=== PATIENT | female | born 1955 | race Caucasian/White ===

== ENCOUNTER 2017-12-16 12:28 | Emergency (ER) | payer OTHER, SELFPAY ==
[2017-12-16] VITALS (9 sets, daily range): BP systolic 88–154; BP diastolic 60–99; PULSE 16–82; RESP 16–30; TEMP 36.6; O2SAT 91–98; BMI 27.2
--- NOTE | 2017-12-16 13:50 | EKG12_ITS ---
Test Reason : Blood Pressure : / mmHG Vent. Rate : 081 BPM Atrial Rate : 081 BPM P-R Int : 198 ms QRS Dur : 076 ms QT Int : 410 ms P-R-T Axes : 025 -07 051 degrees QTc Int : 476 ms Normal sinus rhythm Low voltage QRS Borderline ECG Confirmed by JASMIN VILLAREAL, SHAUN ([id number]), magazine editor JING RIDER ([id number]) on 12/18/2017 10:51:37 AM Referred By: EMANUEL Confirmed By:SHAUN CASTELLANOS MD
--- NOTE | 2017-12-16 13:52 | CT_ITS ---
STUDY: CT BRAIN WITHOUT CONTRAST REASON FOR EXAM: Female, 62 years old. Altered mental status. Ethanol abuse. RADIATION DOSAGE (If Supplied By Facility): CTDIvol = ( 44.99 ) mGy, DLP = ( 745.49 ) mGycm TECHNIQUE: Transaxial CT imaging of the brain was performed without administration of intravenous contrast material. Individualized dose optimization techniques were used for this CT. COMPARISON: None. FINDINGS: Normal soft tissue structures. Normal calvarium. There is mild cerebral atrophy with widening of the extra-axial spaces and ventricular dilatation. There are areas of decreased attenuation within the white matter tracts of the supratentorial brain, consistent with microvascular disease changes. Encephalomalacia in the right temporal lobe with dilatation of the right temporal horn of the right lateral ventricle. Focal encephalomalacia in the right frontal lobe as well as most likely secondary to prior ischemic insult. Normal basal ganglia and thalami. Normal brainstem. Normal cerebellum. There is no intracranial hemorrhage. There are no findings of an acute ischemic infarction. Normal visualized paranasal sinuses. CT/Brain/Head without Contrast IMPRESSION: Chronic involutional changes of the brain. Focal septal malacia in the right temporal and right frontal lobes. Electronically Signed: Wilman Walsh MD at 15:08 EDT Tel [phone], Service support ,
--- NOTE | 2017-12-16 13:55 | RAD_ITS ---
STUDY: X-RAY CHEST REASON FOR EXAM: Female, 62 years old. Ethanol abuse. TECHNIQUE: Single AP portable view of the chest. COMPARISON: None. FINDINGS: EKG lead are seen. Mild increased linear markings at the lung bases worse on the left side suggestive of bibasilar atelectasis. There is no demonstrated pleural abnormality. Normal size heart. Normal mediastinum and angie. Normal visualized pulmonary arteries. Normal visualized aortic arch and descending thoracic aorta. Normal visualized thoracic spine. Normal visualized ribs, clavicles, and shoulders. There is no demonstrated abnormality of the visualized soft tissue structures of the upper abdomen. RAD/Chest 1 View (Portable) IMPRESSION: Findings suggestive of linear atelectasis at the lung bases. Electronically Signed: Wilman Walsh MD at 14:18 EDT Tel [phone], Service support ,
[2017-12-16] MEDS: 0.9% Normal Saline 1,000 ML 999 ML IV (14:24)
[2017-12-16 14:31] LABS: Absolute Lymphocyte Count 1.39 X10^3/ul (0.83-4.51); Absolute Neutrophil Count 4.5 X10^3/uL (2.0-7.7); Basophil# 0.09 X10^3/uL; Basophil% 1.4 % (0-1); Eosinophil# 0.02 X10^3/uL; Eosinophils% 0.3 % (0-5); Hematocrit 43.2 % (37-47); Hemoglobin 14.5 g/dl (12.0-15.0); Lymphocyte # 1.39 X10^3/ul (4.0); Lymphocyte % 21.7 % (19-41); Mean Corp Hgb Conc 33.6 g/gl (32-36); Mean Corpuscular Hgb 31.7 pg (27.0-32.0); Mean Corpuscular Volume 94.3 fL (81-99); Mean Platelet Vol. 9.6 fl (6.2-12.0); Monocyte# 0.41 X10^3/uL; Monocyte% 6.4 % (0-10); Platelet Count 341 K/mm3 (150-450); RBC Distribution Width CV 12.7 % (11.6-14.6); RBC Distribution Width SD 43.3 fl (35.1-43.9); Red Blood Count 4.58 M/mm3 (4.2-5.4); White Blood Count 6.4 K/mm3 (4.4-11.0)
[2017-12-16 14:35] LABS: POSITIVE COUNT NO; POSITIVE DIFFERENTIAL NO; POSITIVE MORPHOLOGY NO
[2017-12-16 14:37] LABS: Bacteria 0 SEEN /hpf (None Seen); Mucous, Urine 0 SEEN /hpf (<or=2+); Red Blood Cells-Urine 0 SEEN /hpf (0-5)
[2017-12-16 14:40] LABS: Color, Urine Yellow (Yellow); Glucose, Dipstick Normal (Normal); Ketone-Dipstick Negative (Negative); Leukocyte Esterase-Dipstick Negative /ul (Negative); Nitrite-Dipstick Negative (Negative); Occult Blood-Urine Negative /ul (Negative); Protein-Dipstick Negative (Negative); Urine Bilirubin Dipstick Negative (Negative); Urine Clarity Sl. Cloudy (Clear); Urine Urobilinogen Normal (Normal)
[2017-12-16 14:48] LABS: Squamous Epithelial Cells - UA 0-5 SEEN /hpf (5-10); White Blood Cells 0-5 SEEN /hpf (0-5)
[2017-12-16 14:49] LABS: Lactic Acid 3.4 mmol/L (0.4-2.0)
[2017-12-16 14:50] LABS: AST(SGOT) 118 U/L (15-37); Alanine Aminotransfer ALT/SGPT 159 U/L (13-56); Albumin, Serum 3.6 g/dL (3.2-5.0); Alkaline Phosphatase 108 U/L (45-117); Anion Gap 14 (5-15); BUN 10 mg/dL (7-18); BUN/Creat Ratio 11.7 RATIO (10-20); Calcium,Total 8.5 mg/dL (8.5-10.1); Chloride 101 mmol/L (98-107); Creatinine, Serum 0.86 mg/dL (0.55-1.02); EST Glomerular Filtration Rate 71 mL/min (>60); Est Glom Filt Rate - Afr Amer 86 mL/min (>60); Estimated Creatinine Clearance 56.11 ml/min; Globulin 3.6 g/dL (2.2-4.2); Glucose 89 mg/dL (74-106); Lipase 209 U/L (73-393); Magnesium 2.5 mg/dL (1.6-2.6); Potassium 4.1 mmol/L (3.5-5.1); Protein, Total 7.2 g/dL (6.4-8.2); Sodium Level 136 mmol/L (136-145)
--- NOTE | 2017-12-16 14:50 | ED.VISSUMM ---
- ER Visit Summary Date of Service: 12/16/17 Chief Complaint: Medical clearance for alcohol History of Present Illness: The patient is a 62 F who is from out of town. Patient states she lives in [place]. This morning she got on the Internet to research where her insurance would pay for her to go to alcohol rehab. And she came to [facility]. She was brought down to the emergency department for medical clearance and [facility] mention that they did not think that she was acting appropriately was concerned there is something more than alcohol abuse going on. Patient denies any current complaints other than nausea but the same time states that she wants something to eat. Patient states repeatedly that she only drinks 2 glasses of Chardonnay a day. When I tell her I do not believe her she tells me that she drinks at least 2 bottles a day. The patient states that she has a history of hypertension and takes atenolol for it. She took her blood pressure medicine this morning. She states she also ate some eggs. Physical Examination: Blood pressure 88/62 temperature of 98 respirations are 82 respiratory rate is 20 pulse ox is 94% on room air Gen: Well-nourished well-developed Head: Normocephalic atraumatic Eyes: Pupils are Ailrio 4 mm to 3 mm bilaterally ENT: TMs clear no rhinorrhea moist mucous membranes Neck: Supple no lymphadenopathy no JVD nontender CVS: Regular rate rhythm no murmurs normal S1-S2 there is strong central and peripheral pulses. Respiratory: No distress clear to auscultation bilaterally chest nontender Abdomen: Soft nontender nondistended normal bowel sounds no masses Back: Nontender Extremity: Nontender no edema there is normal skin perfusion is normal capillary refill. Skin: Normal color no rash Neuro: alert orientated ?3 CN II-XII intact normal strength sensation reflexes gait cerebellar Patient is occasionally repetitive and appears intoxicated. Psych: The patient is condescending to staff and physician. Denies suicidal homicidal ideation Test Results: EKG sinus rhythm at a rate of 81. Chest x-ray negative. CBC is normal. Call level is 264. Magnesium 2.5. ALT 159 AST of 118. Lactic acid 3.4. Emergency Department Course and Treatment: IV fluids and her hypotension is resolved. I suspect the slightly elevated lactic acid is due to a lack of proper hydration and taking her blood pressure medication this morning. There is no evidence the patient is septic. The patient is not poorly perfused. Patient has been highly inappropriate and very condescending to staff, community, and this physician. Numerous times she has been up to the bathroom and when confronted she tells us that she has been drinking alcohol. She has alcohol in her bags in the room. Patient was asked if she is serious about rehab and she is not. The patient was informed that she will need to call for a sober wrecker driver to take her home that is a family member will take responsibility for her. Patient was advised that [facility] has been contacted about this visit. Patient was encouraged to seek rehab when she is ready to become sober. Impression: 1. Alcoholism/alcohol intoxication 2. Hypotension resolved. This note was generated with AYLIENation software. It may contain incorrect words, spelling, and punctuation that were not noted in review of the chart prior to signing <Teo Carbajal - Last Filed: 12/16/17 15:18> - ER Visit Summary Date of Service: 12/16/17 Emergency Department Course and Treatment: Care of the patient was turned over to [facility]. Patient became more cooperative as her alcohol level decreased. Patient is willing to pay for a cab to take her back to [place]. There are no family members available to come pick her up. Patient was again encouraged to seek rehab when she becomes ready for it. Disposition: Discharged home Impression: Alcohol intoxication This note was generated with [employer] dictation software. It may contain incorrect words, spelling, and punctuation that were not noted in review of the chart prior to signing <Amish Segovia - Last Filed: 12/16/17 20:08> ED Disposition <Teo Carbajal - Last Filed: 12/16/17 15:18> <Amish Segovia - Last Filed: 12/16/17 20:08> - Plan for ED Patient: Disposition: Home or Assisted Living Chief Complaint: ETOH Intox Diagnosis: Alcohol intoxication Instructions: ED Alcohol Intoxication Additional Instructions: When you are serious about getting treatment for your alcoholism, you should seek rehab. Bringing alcohol to the hospital you are seeking rehab from his highly inappropriate. Your treatment of hospital staff while you are intoxicated is highly inappropriate.
[2017-12-16 14:54] LABS: Amphetamine Urine VISTA NEGATIVE (<1000 ng/mL); Barbiturate Urine VISTA NEGATIVE (< 200 ng/mL); Benzodiazepine Urine VISTA NEGATIVE (< 200 ng/mL); Cocaine Urine VISTA NEGATIVE (< 300 ng/mL); Ecstacy Urine VISTA NEGATIVE (< 500 ng/mL); Methadone Urine VISTA NEGATIVE (< 300 ng/mL); PCP Urine VISTA NEGATIVE (< 25 ng/mL); THC Urine VISTA NEGATIVE (< 50 ng/mL); Vista UDS pH Range 5
--- NOTE | 2017-12-16 14:54 | ED.DCSUM_ITS ---
- ER Visit Summary Date of Service: 12/16/17 Chief Complaint: Medical clearance for alcohol History of Present Illness: The patient is a 62 F who is from out of town. Patient states she lives in [place]. This morning she got on the Internet to research where her insurance would pay for her to go to alcohol rehab. And she came to [facility]. She was brought down to the emergency department for medical clearance and [facility] mention that they did not think that she was acting appropriately was concerned there is something more than alcohol abuse going on. Patient denies any current complaints other than nausea but the same time states that she wants something to eat. Patient states repeatedly that she only drinks 2 glasses of Chardonnay a day. When I tell her I do not believe her she tells me that she drinks at least 2 bottles a day. The patient states that she has a history of hypertension and takes atenolol for it. She took her blood pressure medicine this morning. She states she also ate some eggs. Physical Examination: Blood pressure 88/62 temperature of 98 respirations are 82 respiratory rate is 20 pulse ox is 94% on room air Gen: Well-nourished well-developed Head: Normocephalic atraumatic Eyes: Pupils are Alirio 4 mm to 3 mm bilaterally ENT: TMs clear no rhinorrhea moist mucous membranes Neck: Supple no lymphadenopathy no JVD nontender CVS: Regular rate rhythm no murmurs normal S1-S2 there is strong central and peripheral pulses. Respiratory: No distress clear to auscultation bilaterally chest nontender Abdomen: Soft nontender nondistended normal bowel sounds no masses Back: Nontender Extremity: Nontender no edema there is normal skin perfusion is normal capillary refill. Skin: Normal color no rash Neuro: alert orientated ?3 CN II-XII intact normal strength sensation reflexes gait cerebellar Patient is occasionally repetitive and appears intoxicated. Psych: The patient is condescending to staff and physician. Denies suicidal homicidal ideation Test Results: EKG sinus rhythm at a rate of 81. Chest x-ray negative. CBC is normal. Call level is 264. Magnesium 2.5. ALT 159 AST of 118. Lactic acid 3.4. Emergency Department Course and Treatment: IV fluids and her hypotension is resolved. I suspect the slightly elevated lactic acid is due to a lack of proper hydration and taking her blood pressure medication this morning. There is no evidence the patient is septic. The patient is not poorly perfused. Patient has been highly inappropriate and very condescending to staff, community , and this physician. Numerous times she has been up to the bathroom and when confronted she tells us that she has been drinking alcohol. She has alcohol in her bags in the room. Patient was asked if she is serious about rehab and she is not. The patient was informed that she will need to call for a sober rolloff truck driver to take her home that is a family member will take responsibility for her. Patient was advised that [facility] has been contacted about this visit. Patient was encouraged to seek rehab when she is ready to become sober. Impression: 1. Alcoholism/alcohol intoxication 2. Hypotension resolved. This note was generated with Jayporeation software. It may contain incorrect words, spelling, and punctuation that were not noted in review of the chart prior to signing <Teo Carbajal - Last Filed: 12/16/17 15:18> - ER Visit Summary Date of Service: 12/16/17 Emergency Department Course and Treatment: Care of the patient was turned over to [place]. Patient became more cooperative as her alcohol level decreased. Patient is willing to pay for a cab to take her back to [place]. There are no family members available to come pick her up. Patient was again encouraged to seek rehab when she becomes ready for it. Disposition: Discharged home Impression: Alcohol intoxication This note was generated with Zoomor[employer] dictation software. It may contain incorrect words, spelling, and punctuation that were not noted in review of the chart prior to signing <Amish Segovia - Last Filed: 12/16/17 20:08> ED Disposition <Teo Carbajal - Last Filed: 12/16/17 15:18> <Amish Segovia - Last Filed: 12/16/17 20:08> - Plan for ED Patient: Disposition: Home or Assisted Living Chief Complaint: ETOH Intox Diagnosis: Alcohol intoxication Instructions: ED Alcohol Intoxication Additional Instructions: When you are serious about getting treatment for your alcoholism, you should seek rehab. Bringing alcohol to the hospital you are seeking rehab from his highly inappropriate. Your treatment of hospital staff while you are intoxicated is highly inappropriate.
[2017-12-16 14:57] LABS: Prothrombin Time (Protime)PT. 12.7 SECONDS (11.7-14.9)
[2017-12-16 14:58] LABS: Partial Thromboplast Time 27.9 Seconds (24.1-36.2)
--- NOTE | 2017-12-16 15:32 | ED.RN ---
RN CAME INTO PT ROOM AT 1500 TO CHECK ON HER. NOTICED CURTAIN WAS CLOSED, WHEN IT WAS INITIALLY LEFT OPEN. WENT INTO ROOM AND NOTICED PT BAG WAS OPEN AND THERE WAS AN OPEN BOTTLE OF WINE IN HER BAG. WHEN PT WAS CONFRONTED WHY SHE BROUGHT WINE SHE EXPLAINED TO RN THAT SHE WANTED TO LEAVE THE HOSPITAL. DR. CASTELLANOS AND RN EXPLAINED TO PT SHE CANNOT DRIVE WHILE HAVING HIGH ALCOHOL LEVEL, SHE DEMANDED TO HAVE IV TAKEN OUT AND MONITOR DETACHED. DR. CASTELLANOS LEFT MESSAGE FOR SON TO CALL ER BACK. PT GOT IRRITATED WITH RN, DE-ESCALATED PT BEHAVIOR. SHE IS RESTING IN BED.
[2017-12-16 18:16] LABS: Reflex Lactate? Y
[2017-12-16] MEDS: Ondansetron ODT 4 MG Tablet PO (20:25)
--- NOTE | 2017-12-16 20:38 | NURSING ---
[facility]OT [employer] TO TAKE THE PT BACK TO HER HOME IN [facility]. LET THE TAXI SERVICE MADE AWARE THAT SHE WAS HERE FOR ALCOHOL. THE TRIAGE NURSE HAS AHOLD OF HER BAG UNTIL THE TAXI PULLS UP.
--- NOTE | 2017-12-16 20:41 | NURSING ---
PT IV WAS REMOVED EARLIER BY ANOTHER STAFF MEMBER
== END 2017-12-16 20:42 | disposition home or self-care (01) ==
PROVIDERS: Emergency Provider Emergency Medicine
DX: F10.229 Alcohol dependence with intoxication, unspecified (principal); T51.0X1A Toxic effect of ethanol, accidental (unintentional), initial encounter; Y90.8 Blood alcohol level of 240 mg/100 ml or more; I10 Essential (primary) hypertension
CPT/HCPCS: 70450; 71045; 80053; 80307; 80320; 81001; 83605; 83690; 83735; 84484; 85025; 85610; 85730; 93005; 96360; 99284; G0480